=== PATIENT | female | born 1975 | race Caucasian/White ===

== ENCOUNTER 2024-02-05 12:53 | Emergency (ER) | payer MEDICAID, SELFPAY ==
--- NOTE | ~2024-02-05 | XR_ITS ---
EXAMINATION: XR CHEST CLINICAL INFORMATION: Cough, evaluate fluid overload. COMPARISON: None available. TECHNIQUE: 2 views of the chest were obtained. FINDINGS: Central vascular prominence and mild to moderate diffuse interstitial thickening. No consolidation. No pleural effusion or pneumothorax. Slightly prominent cardiac size. No acute osseous findings. Visualized upper abdomen is within normal limits. XR/XR chest 2V IMPRESSION: Findings are suggestive of interstitial pulmonary edema versus atypical/viral infectious process. No consolidation or pleural effusion. No pneumothorax.
--- NOTE | 2024-02-05 12:58 | ED_ITS ---
HPI - General Adult General Chief complaint: General Medical Stated complaint: BODY ACHES SWELLING OF LEGS Time Seen by Provider: 02/05/24 12:58 Source: patient and EMS Mode of arrival: EMS Limitations: no limitations History of Present Illness HPI narrative: Patient is a 48 year old, assigned female at , with a history of CHF, CKD, and DM II presents to the ED with a 1 week history of lower body aches and swelling. Patient endorses numbness and tingling in her lower extremities which have been consistent over the past week. Patient reports she has been without her home medications for about a week after running out. She was able to refill her meds today and brought them with her. Reports homelessness as a social determinant to getting the medications and treatments she needs. Denies headaches, dizziness, lightheadedness, nausea, vomiting, fatigue, fevers/chills, acute changes to vision, nasal congestion/discharge, cough, SOB, chest pain, abdominal pain, and urinary symptoms. Patient states that she was recently seen at [facility] for the same issues. MD complaint: Body aches and leg swelling Onset (ago): week(s) (1) Location: lower extremity (Bilaterally legs) Radiation: distal Severity: mild Severity scale (1-10): 3 Quality: constant and other (numbness and tingling) Pain Consistency: constant Relieving factors: none Exacerbating factors: none Associated symptoms: denies other symptoms Treatments prior to arrival: none Related Data Home Medications Medication Instructions Recorded Confirmed amlodipine 2.5 mg tablet 2.5 mg PO DAILY 02/05/24 02/05/24 citalopram 20 mg tablet 20 mg PO DAILY 02/05/24 02/05/24 empagliflozin 10 mg tablet 10 mg PO DAILY 02/05/24 02/05/24 (Jardiance) gabapentin 100 mg tablet 100 mg PO TID 02/05/24 02/05/24 insulin lispro 100 unit/mL 1 sliding scale dose subcut 02/05/24 02/05/24 subcutaneous solution USEASDIRECTD insulin lispro 100 unit/mL 5 unit subcut TID 02/05/24 02/05/24 subcutaneous solution sodium bicarbonate 650 mg tablet 1,300 mg PO TID 02/05/24 02/05/24 Allergies Allergy/AdvReac Type Severity Reaction Status Date / Time No Known Allergies Allergy Verified 02/05/24 13:08 Review of Systems 2 Constitutional: Constitutional: Reports body ache(s), Denies chills, Denies fatigue, Denies fever(s), Denies headache(s), Denies night sweats and Denies weakness Eyes: Eyes: Reports no additional eye complaints, Denies blurry vision, Denies change in vision, Denies diplopia, Denies eye discharge, Denies loss of vision and Denies eye pain ENT: Denies dizziness, Denies headache(s), Denies nasal congestion, Denies nasal discharge, Denies sinus pressure and Denies sore throat Cardiovascular: Cardiovascular: Denies chest pain, Reports pedal edema, Reports leg edema, Denies lightheadedness, Denies Loss of Consciousness, Denies dyspnea and Reports dyspnea on exertion Respiratory: Respiratory: Reports no additional respiratory complaints, Denies cough, Denies dyspnea and Reports dyspnea on exertion Gastrointestinal: Gastrointestinal: Denies abdominal pain, Denies melena, Denies hematochezia, Denies change in bowel habits, Denies change in stool character, Reports diarrhea and Reports loose stools Genitourinary: Genitourinary: Denies hematuria, Denies urinary frequency, Denies dysuria, Denies urinary incontinence, Denies urinary hesitancy and Denies urinary urgency Musculoskeletal: Musculoskeletal: Reports no additional musculoskeletal complaints, Denies numbness and Reports tingling Neurologic: Denies dizziness, Denies headache(s), Denies loss of vision, Denies numbness, Reports tingling, Reports paresthesias and Denies weakness Psychiatric: Psychiatric: Reports no additional psychiatric complaints Endocrine: Endocrine: Reports no additional endocrine complaints and Denies fatigue Hematologic/Lymphatic: Hematologic/Lymphatic: Reports no additional hematologic/lymphatic complaints Allergic/Immunologic: Allergic/Immunologic: Reports no additional allergic/immunologic complaints [facility] Past Medical History Attestation statement: The following information was validated with the patient. Source: old records reviewed and nursing notes reviewed Social History Social History (Updated 02/06/24 @ 13:20 by Violet Fuentes [facility]) Housing: Homeless Are you a primary critical care nurse specialist to a significant other at home: No Smoked in Last 30 Days: No Use of substances other than those prescribed or required for medical reasons: No Advance Directives: No Advance Directives Information Provided: No Healthcare Proxy: Yes If Yes to HCP, is it invoked: No Guardian: No Access to Firearms: No Physical Exam ED Vital Signs: Vital Signs - 24 hr 02/06/24 22:00 02/07/24 05:13 02/07/24 07:37 Temperature 98.9 F 97.4 F Pulse Rate 79 83 Respiratory Rate 18 14 18 Blood Pressure 135/63 150/67 H Pulse Oximetry 98 98 Oxygen Delivery Method Room Air Room Air 02/07/24 13:45 Temperature 97.5 F Pulse Rate 86 Respiratory Rate 20 Blood Pressure 134/61 Pulse Oximetry 98 Oxygen Delivery Method Room Air BMI result Body Mass Index 36.6 Const General: no acute distress, alert and awake Nutritional Appearance: obese Orientation/consciousness: patient oriented x3 Limitations: no limitations HENMT Head: Yes normal to inspection Ears: hearing grossly normal bilaterally General nose exam: Normal external nose present Face and sinus: Yes normal facial exam Mouth: Normal oral and palatal mucosa present, no drooling and no muffled voice Eyes General: appearance normal, both eyes and all related structures Periorbital: periorbital findings normal Eyelids: Yes eyelids normal Conjunctivae: conjunctivae normal Pupils: Equal, round and reactive pupils present EOM: EOMs intact bilaterally Neck Neck: Yes normal visual inspection, Yes full ROM and Yes no lymphadenopathy Chest Chest palpation & inspection: normal inspection of the chest Resp Effort & Inspection: normal respiratory effort and able to speak in complete sentences Auscultation: clear to auscultation bilaterally Cardio Jugular venous distension: no JVD Palpation: normal PMI Rate: regular rate Rhythm: regular rhythm GI Inspection: Yes normal to inspection Neuro General: patient oriented x3 Cranial nerves: Yes Equal, round and reactive pupils present Cognition (Neuro): normal cognition Motor exam (neuro): 5/5 motor strength present throughout Sensory Exam: Abnormal lower extremity sensory exam bilateral light-touch abnormal decreased (Decreased sensation in both lower extremities) Coordination: [id number] test normal Extrem General: Yes capillary refill normal, Yes edema (3+ pitting edema in bilaterally lower extremities from the knee down) and Yes pedal edema Right lower extremity: normal capillary refill, edema Details: pitting and 3+ and lower leg Details: pitting edema Details: 3+ Left lower extremity: normal capillary refill, edema Details: pitting and 3+, lower leg Details: pitting edema Details: 3+ and foot Details: other (Healed 3 cm diabetic foot pressure ulcer) Psych Appearance: grossly normal Mental Status: mental status grossly normal Affect: normal affect Attitude: cooperative Thought process: Normal thought process present Thought content: Normal thought content present Insight: Good insight present (Psych) Course Reevaluation(s) Reevaluation #1: Physician observation continued. Uneventful night. Vital signs stable. No complaints from nursing overnight. Med reconciliation reviewed and done. Pending disposition. Will continue to monitor. Time: 09:45 Reevaluation #2: Patient was cleared by the care team. Patient pending PT and case management. Time: 12:37 Reevaluation #3: Physician observation continued. Uneventful night. Vital signs stable. No complaints from nursing overnight. Med reconciliation reviewed and done. Pending disposition. Will continue to monitor. Additional Reevaluation(s): [address] [place] via BLS at 130pm today. Medications Administered Generic Name Dose Route Start Last Admin Trade Name Freq PRN Reason Stop Dose Admin Amlodipine Besylate 2.5 mg 02/06/24 09:00 02/07/24 09:25 Amlodipine Besylate 2.5 Mg Tablet PO 2.5 mg DAILY EDUARDO Administration Protocol Empagliflozin 10 mg 02/06/24 09:00 02/07/24 09:25 Empagliflozin 10 Mg Tablet PO 10 mg DAILY EDUARDO Administration Escitalopram Oxalate 10 mg 02/06/24 09:00 02/07/24 09:25 Escitalopram Oxalate 10 Mg Tablet PO 10 mg DAILY EDUARDO Administration Gabapentin 100 mg 02/05/24 21:45 02/07/24 09:25 Gabapentin 100 Mg Capsule PO 100 mg TID EDUARDO Administration Insulin Human Lispro 0 unit 02/05/24 21:30 02/07/24 11:47 Insulin Lispro 100 Unit/Ml 3 Ml Vial SUBCUT 4 unit QIDACHS EDUARDO Administration Protocol Insulin Human Lispro 5 unit 02/05/24 21:45 02/07/24 09:25 Insulin Lispro 100 Unit/Ml 3 Ml Vial SUBCUT 5 unit TID EDUARDO Administration Sodium Bicarbonate 1,300 mg 02/05/24 21:45 02/07/24 09:25 Sodium Bicarbonate 650 Mg Tablet PO 1,300 mg TID EDUARDO Administration Discontinued Medications Generic Name Dose Route Start Last Admin Trade Name Freq PRN Reason Stop Dose Admin Acetaminophen 650 mg 02/06/24 20:57 02/06/24 21:16 Acetaminophen 325 Mg Tablet PO 02/06/24 20:58 650 mg ONCE ONE Administration Furosemide 40 mg 02/05/24 15:58 02/05/24 16:10 Furosemide 40 Mg/4 Ml Vial IVPUSH 02/05/24 15:59 40 mg ONCE ONE Administration Protocol Labetalol HCl 10 mg 02/05/24 21:30 02/05/24 22:23 Labetalol Hcl 100 Mg/20 Ml Vial IVPUSH 02/05/24 21:31 10 mg ONCE ONE Administration Loperamide HCl 4 mg 02/06/24 22:07 02/06/24 22:20 Loperamide Hcl 2 Mg Capsule PO 02/06/24 22:08 4 mg ONCE ONE Administration Medical Decision Making Medical Decision Making MDM Narrative: Patient is a 48 year old assigned female at with a history of CHF, CKD, and DM II presenting to the emergency department today with bilateral leg swelling. Patient's physical exam was as noted in the physical exam portion of this note. Patient's blood work showed an elevated CR of 4.08, BUN of 103 and GFR of 17.9. I spoke with Dr. Dejesus from Nephrology who looked at the patient's records from [facility] and confirmed this is chronic levels for the patient and does not require dialysis. He also recommends giving 40mg of IV lasix for lower extremity edema relief. Patient use to require dialysis until December 2023 when she was told she no longer needed it. Patient's records from her recent [facility] visits state that her various work ups were normal, including bilateral lower extremity US, were negative. Patient's EKG was unremarkable. Patient's chest x-ray showed no acute process. I consulted with my attending physician, Dr. Lopez, who agrees this patient does not need to be admitted and would benefit from being evaluated by case management for help with housing. I explained my physical exam findings as well as all test results to the patient. I answered all questions asked by the patient. Patient verbalized agreement and understanding with this treatment plan and remaining in the department to be evaluated by the case management team. Differential Diagnosis Differential Diagnoses: The differential diagnosis associated with the presentation includes CKD Homelessness Dependent edema Homelessness Admission/Observation Consideration of admission/observation: Escalation of care including admission/observation considered Patient would have been admitted to the hospital had her work up had any findings where hospital admission was appropriate and her clinical presentation warranted hospital admission. Consult Healthcare Provider Management of the patient was discussed with: Communication Technician (spoke with the process cheese cooker as noted in the MDM Rationale portion of this note.) Lab Data [facility] Lab Attestation statement: I reviewed the patient's lab results. My interpretation of these results are in the MDM Rationale portion of this note. 02/05/24 14:23 02/05/24 14:23 Labs: Lab Results 02/05/24 02/05/24 02/05/24 Range/Units 14:23 17:48 19:59 WBC 5.9 (4.8-10.8) X10*3/uL RBC 2.69 L (4.20-5.50) X10*6/uL Hgb 8.4 L (12.0-16.0) g/dl Hct 25.4 L (37.0-47.0) % MCV 94.4 (80.0-98.0) fL MCH 31.2 (27.0-33.0) pg MCHC 33.1 (31.0-35.0) g/dl RDW 13.2 (11.0-16.0) % Plt Count 177 (160-400) X10*3/uL MPV 9.1 L (9.4-12.3) fL Immature Gran % (Auto) 0.3 (0.0-0.4) % Neut % (Auto) 73.1 H (45-73) % Lymph % (Auto) 16.7 L (20-40) % [place] % (Auto) 5.6 (2-11) % Eos % (Auto) 3.6 (0-4) % Baso % (Auto) 0.7 (0-2) % Lymph # (Auto) 1.0 L (1.2-4.9) X10*3/uL [place] # (Auto) 0.3 (0.1-1.2) X10*3/uL Eos # (Auto) 0.2 (0.0-0.4) X10*3/uL Baso # (Auto) 0.0 (0.0-0.2) X10*3/uL Abs Immat Gran (auto) 0.02 (0.00-0.03) X10*3/uL Absolute Neuts (auto) 4.3 (2.0-8.3) x10*3/uL Absolute Nucleated RBC 0.000 (0.0-0.012) X10*3/uL Nucleated RBC % (auto) 0.0 (0.0-0.2) /100WBC Sodium 135 (135-145) mmol/L Potassium 4.4 (3.3-5.1) mmol/L Chloride 103 (96-108) mmol/L Carbon Dioxide 22 (22-29) mmol/L Anion Gap 14 (12-20) BUN 103 H (9-16) mg/dL Creatinine 4.08 H* (0.5-1.4) mg/dL Estim Creat Clear Calc 17.9 Estimated GFR 12 POC Glucose 375 H* (60-115) mg/dL Random Glucose 385 H* (60-115) mg/dL Calcium 7.0 L (8.4-10.2) mg/dL Magnesium 2.1 (1.6-2.6) mg/dL Total Bilirubin 0.2 (0.0-1.0) mg/dL AST 14 (5-31) U/L ALT 23 (0-31) U/L Alkaline Phosphatase 308 H (39-117) U/L Troponin I High Sens 11.1 (<3.5-17.0) ng/L B-Natriuretic Peptide 345 H (<100) pg/mL Total Protein 6.6 (6.5-8.0) g/dL Albumin 3.1 L (3.5-5.0) g/dL Beta-Hydroxybutyrate 0.08 (0.02-0.27) mmol/L Urine Color Yellow Urine Appearance Clear Urine pH 7.5 (5.0-9.0) Ur Specific [place] 1.015 (1.005-1.025) Urine Protein 300 (3+) H (Neg-Trace) mg/dL Urine Glucose (UA) >=1000 H (Negative) mg/dL Urine Ketones Negative (Negative) mg/dL Urine Blood Small (1+) H (Negative) Urine Nitrite Negative (Negative) Ur Leukocyte Esterase Negative (Negative) Urine RBC 3-5 H (0-2) /HPF Urine WBC 0-5 (0-5) /HPF Ur Squamous Epith Cells 0-2 (0-2) /HPF Urine Bacteria Trace (None Seen) Hyaline Casts 0-2 (0-2) /LPF Urine Opiates Screen Not Detected (Not Detect) Urine Fentanyl Screen Not Detected (Not Detect) Ur Barbiturates Screen Not Detected (Not Detect) Ur Phencyclidine Scrn Not Detected (Not Detect) Ur Amphetamines Screen Not Detected (Not Detect) U Benzodiazepines Scrn Not Detected (Not Detect) Urine Cocaine Screen Not Detected (Not Detect) U Marijuana (THC) Screen Not Detected (Not Detect) Influenza Type A (PCR) NEGATIVE (Negative) Influenza Type B (PCR) NEGATIVE (Negative) RSV RNA Qual (PCR) NEGATIVE (Negative) SARS-CoV-2 RNA (RT-PCR) NEGATIVE (Negative) 02/06/24 02/06/24 02/06/24 Range/Units 07:18 11:04 16:10 WBC (4.8-10.8) X10*3/uL RBC (4.20-5.50) X10*6/uL Hgb (12.0-16.0) g/dl Hct (37.0-47.0) % MCV (80.0-98.0) fL MCH (27.0-33.0) pg MCHC (31.0-35.0) g/dl RDW (11.0-16.0) % Plt Count (160-400) X10*3/uL MPV (9.4-12.3) fL Immature Gran % (Auto) (0.0-0.4) % Neut % (Auto) (45-73) % Lymph % (Auto) (20-40) % [place] % (Auto) (2-11) % Eos % (Auto) (0-4) % Baso % (Auto) (0-2) % Lymph # (Auto) (1.2-4.9) X10*3/uL [place] # (Auto) (0.1-1.2) X10*3/uL Eos # (Auto) (0.0-0.4) X10*3/uL Baso # (Auto) (0.0-0.2) X10*3/uL Abs Immat Gran (auto) (0.00-0.03) X10*3/uL Absolute Neuts (auto) (2.0-8.3) x10*3/uL Absolute Nucleated RBC (0.0-0.012) X10*3/uL Nucleated RBC % (auto) (0.0-0.2) /100WBC Sodium (135-145) mmol/L Potassium (3.3-5.1) mmol/L Chloride (96-108) mmol/L Carbon Dioxide (22-29) mmol/L Anion Gap (12-20) BUN (9-16) mg/dL Creatinine (0.5-1.4) mg/dL Estim Creat Clear Calc Estimated GFR POC Glucose 229 H 210 H 146 H (60-115) mg/dL Random Glucose (60-115) mg/dL Calcium (8.4-10.2) mg/dL Magnesium (1.6-2.6) mg/dL Total Bilirubin (0.0-1.0) mg/dL AST (5-31) U/L ALT (0-31) U/L Alkaline Phosphatase (39-117) U/L Troponin I High Sens (<3.5-17.0) ng/L B-Natriuretic Peptide (<100) pg/mL Total Protein (6.5-8.0) g/dL Albumin (3.5-5.0) g/dL Beta-Hydroxybutyrate (0.02-0.27) mmol/L Urine Color Urine Appearance Urine pH (5.0-9.0) Ur Specific [place] (1.005-1.025) Urine Protein (Neg-Trace) mg/dL Urine Glucose (UA) (Negative) mg/dL Urine Ketones (Negative) mg/dL Urine Blood (Negative) Urine Nitrite (Negative) Ur Leukocyte Esterase (Negative) Urine RBC (0-2) /HPF Urine WBC (0-5) /HPF Ur Squamous Epith Cells (0-2) /HPF Urine Bacteria (None Seen) Hyaline Casts (0-2) /LPF Urine Opiates Screen (Not Detect) Urine Fentanyl Screen (Not Detect) Ur Barbiturates Screen (Not Detect) Ur Phencyclidine Scrn (Not Detect) Ur Amphetamines Screen (Not Detect) U Benzodiazepines Scrn (Not Detect) Urine Cocaine Screen (Not Detect) U Marijuana (THC) Screen (Not Detect) Influenza Type A (PCR) (Negative) Influenza Type B (PCR) (Negative) RSV RNA Qual (PCR) (Negative) SARS-CoV-2 RNA (RT-PCR) (Negative) 03/06/2402/07/24 02/07/24 Range/Units 19:02 06:58 10:57 WBC (4.8-10.8) X10*3/uL RBC (4.20-5.50) X10*6/uL Hgb (12.0-16.0) g/dl Hct (37.0-47.0) % MCV (80.0-98.0) fL MCH (27.0-33.0) pg MCHC (31.0-35.0) g/dl RDW (11.0-16.0) % Plt Count (160-400) X10*3/uL MPV (9.4-12.3) fL Immature Gran % (Auto) (0.0-0.4) % Neut % (Auto) (45-73) % Lymph % (Auto) (20-40) % [place] % (Auto) (2-11) % Eos % (Auto) (0-4) % Baso % (Auto) (0-2) % Lymph # (Auto) (1.2-4.9) X10*3/uL [place] # (Auto) (0.1-1.2) X10*3/uL Eos # (Auto) (0.0-0.4) X10*3/uL Baso # (Auto) (0.0-0.2) X10*3/uL Abs Immat Gran (auto) (0.00-0.03) X10*3/uL Absolute Neuts (auto) (2.0-8.3) x10*3/uL Absolute Nucleated RBC (0.0-0.012) X10*3/uL Nucleated RBC % (auto) (0.0-0.2) /100WBC Sodium (135-145) mmol/L Potassium (3.3-5.1) mmol/L Chloride (96-108) mmol/L Carbon Dioxide (22-29) mmol/L Anion Gap (12-20) BUN (9-16) mg/dL Creatinine (0.5-1.4) mg/dL Estim Creat Clear Calc Estimated GFR POC Glucose 192 H 121 H 243 H (60-115) mg/dL Random Glucose (60-115) mg/dL Calcium (8.4-10.2) mg/dL Magnesium (1.6-2.6) mg/dL Total Bilirubin (0.0-1.0) mg/dL AST (5-31) U/L ALT (0-31) U/L Alkaline Phosphatase (39-117) U/L Troponin I High Sens (<3.5-17.0) ng/L B-Natriuretic Peptide (<100) pg/mL Total Protein (6.5-8.0) g/dL Albumin (3.5-5.0) g/dL Beta-Hydroxybutyrate (0.02-0.27) mmol/L Urine Color Urine Appearance Urine pH (5.0-9.0) Ur Specific [place] (1.005-1.025) Urine Protein (Neg-Trace) mg/dL Urine Glucose (UA) (Negative) mg/dL Urine Ketones (Negative) mg/dL Urine Blood (Negative) Urine Nitrite (Negative) Ur Leukocyte Esterase (Negative) Urine RBC (0-2) /HPF Urine WBC (0-5) /HPF Ur Squamous Epith Cells (0-2) /HPF Urine Bacteria (None Seen) Hyaline Casts (0-2) /LPF Urine Opiates Screen (Not Detect) Urine Fentanyl Screen (Not Detect) Ur Barbiturates Screen (Not Detect) Ur Phencyclidine Scrn (Not Detect) Ur Amphetamines Screen (Not Detect) U Benzodiazepines Scrn (Not Detect) Urine Cocaine Screen (Not Detect) U Marijuana (THC) Screen (Not Detect) Influenza Type A (PCR) (Negative) Influenza Type B (PCR) (Negative) RSV RNA Qual (PCR) (Negative) SARS-CoV-2 RNA (RT-PCR) (Negative) Independent Interpretation I performed an independent interpretation of an: EKG Interpretation: Vent. Rate: 093 BPM Atrial Rate: 093 BPM P-R Int: 174 ms QRS Dur: 092 ms QT Int: 392 ms P-R-T Axes: 044 -13 051 degrees QTc Int: 487 ms Normal sinus rhythm Prolonged QT Abnormal ECG No previous ECGs available DD/ 1424 Independent Historian Clinical information obtained from an independent historian. History obtained from or confirmed by: EMS (EMS provided additional history and confirmed the history provided by the patient.) External Record Review External record reviewed: Outside ED record (reviewed [facility] records) Critical Care Time Critical Care Time Critical Care Time: Yes Total Critical Care Time: 45 Attestation: I spent 45 minutes of Critical Care Time with this patient. This does not include time spent on separately reported billable procedures. Discharge Plan Discharge Clinical Impression: CKD (chronic kidney disease) Edema Qualifiers: Edema type: localized Qualified Code(s): R60.0 - Localized edema Patient Disposition: [facility] Transfer Details: [facility] via BLS at 130pm today. Additional Instructions: Take your medications as prescribed. If you were prescribed antibiotics today, it is important that you take your medication to their entirety, do not skip any doses, do not finish them early. Follow-up with your primary care provider this week. Return to the emergency department with new or worsening symptoms. Such as fevers, chills, chest pain, shortness of breath, nausea, vomiting, dizziness, headache, vision changes, lethargy In case of emergency call 911 Prescriptions: No Action amlodipine 2.5 mg Tablet 2.5 mg PO DAILY citalopram 20 mg Tablet 20 mg PO DAILY sodium bicarbonate 650 mg Tablet 1,300 mg PO TID gabapentin 100 mg Tablet 100 mg PO TID Jardiance 10 mg Tablet 10 mg PO DAILY insulin lispro 100 unit/mL Solution 5 unit SUBCUT TID insulin lispro 100 unit/mL Solution 1 sliding scale dose SUBCUT USEASDIRECTD Protocol: Insulin Correction Scale Less than or equal to 110 ---- Give (units): 0 111 to 150 Give (units): 0 151 to 200 Give (units): 2 201 to 250 Give (units): 4 251 to 300 Give (units): 6 301 to 350 Give (units): 8 Greater than 350 Give (units): 10 Call MD if Blood Glucose > : 350 [facility]: [facility] [Outside] Interventions: ED Discharge Assessment Last Done: 02/07/24 13:40
[2024-02-05 13:00] VITALS: BP 136/82; PULSE 98
[2024-02-05 13:05] VITALS: BP 164/84; PULSE 95; RESP 18; TEMP 37.1; O2SAT 100; BMI 36.6
[2024-02-05 13:08] VITALS: PULSE 94; RESP 16; O2SAT 100
--- NOTE | 2024-02-05 13:08 | ECG_ITS ---
Test Reason : WEAKNESS Blood Pressure : / mmHG Vent. Rate : 093 BPM Atrial Rate : 093 BPM P-R Int : 174 ms QRS Dur : 092 ms QT Int : 392 ms P-R-T Axes : 044 -13 051 degrees QTc Int : 487 ms Normal sinus rhythm Prolonged QT Abnormal ECG No previous ECGs available Referred By: Coco Vásquez Electronically Signed By:Jeffrey Huang
--- NOTE | 2024-02-05 13:36 | PC.NURSE ---
Pt cleaned for large amt of stool, watery and formed. Seen by ED provider
--- NOTE | 2024-02-05 14:14 | PC.NURSE ---
Pt is alert and oriented. States homelessness and recent d/c from [facility] x1 week ago and just filled meds today, no meds since leave [facility]. Reports body swelling and body aches. Pitting edema noted up to B/L knees however skin taught up to thigh region. B/L pulses found via doppler and marked. LS clear, dim to bases. No SOB or resp distress. Pt reports old non functioning fistula to right forearm (h/o Dialysis) but states taken off x1 month ago as 24 urine was WNL. Skin is pale, warm and dry. Speaking full sentences.
[2024-02-05 14:28] LABS: MANUAL DIFF FLAG NO
[2024-02-05 14:31] LABS: Basophils Percent Auto 0.7 % (0-2); Eosinophils Absolute Auto 0.2 X10*3/uL (0.0-0.4); Eosinophils Percent Auto 3.6 % (0-4); Hematocrit 25.4 % (37.0-47.0); Hemoglobin 8.4 g/dl (12.0-16.0); Imm Gran Abs Auto 0.02 X10*3/uL (0.00-0.03); Imm Gran Pct Auto 0.3 % (0.0-0.4); Lymphocytes Percent Auto 16.7 % (20-40); Mean Corpuscular HGB Conc 33.1 g/dl (31.0-35.0); Mean Corpuscular Hemoglobin 31.2 pg (27.0-33.0); Mean Corpuscular Volume 94.4 fL (80.0-98.0); Mean Platelet Volume 9.1 fL (9.4-12.3); Monocytes Absolute Auto 0.3 X10*3/uL (0.1-1.2); Monocytes Percent Auto 5.6 % (2-11); Neutrophils Absolute Auto 4.3 x10*3/uL (2.0-8.3); Neutrophils Percent Auto 73.1 % (45-73); Platelet Count 177 X10*3/uL (160-400); Red Blood Count 2.69 X10*6/uL (4.20-5.50); Red Cell Distribution Width 13.2 % (11.0-16.0); White Blood Count 5.9 X10*3/uL (4.8-10.8)
[2024-02-05 14:48] LABS: Beta-Hydroxybutyrate 0.08 mmol/L (0.02-0.27)
[2024-02-05 14:51] LABS: B Type Natriuretic Peptide 345 pg/mL (<100)
[2024-02-05 14:53] LABS: Alanine Aminotransferase 23 U/L (0-31); Albumin Level 3.1 g/dL (3.5-5.0); Alkaline Phosphatase 308 U/L (39-117); Anion Gap 14 (12-20); Aspartate Amino Transferase 14 U/L (5-31); Bilirubin Total 0.2 mg/dL (0.0-1.0); Blood Urea Nitrogen 103 mg/dL (9-16); Carbon Dioxide 22 mmol/L (22-29); Chloride 103 mmol/L (96-108); Creatinine Clr Calc Pharmacy 17.9; Estimated Glomerular Filt Rate 12; Glucose Random 385 mg/dL (60-115); Magnesium 2.1 mg/dL (1.6-2.6); Potassium 4.4 mmol/L (3.3-5.1); Sodium 135 mmol/L (135-145); Total Protein 6.6 g/dL (6.5-8.0)
[2024-02-05 14:58] LABS: Troponin-I High Sensitivity 11.1 ng/L (<3.5-17.0)
[2024-02-05 15:16] LABS: Influenza A PCR NEGATIVE (Negative); Influenza B PCR NEGATIVE (Negative); Resp Syncy Virus RNA Qual PCR NEGATIVE (Negative); SARS COV2 PCR INHOUSE NEGATIVE (Negative)
[2024-02-05 15:48] VITALS: BP 174/99; PULSE 90; RESP 16; TEMP 36.7; O2SAT 99
[2024-02-05] MEDS: Furosemide 40 MG/4 ML VIAL IVPUSH (16:10)
--- NOTE | 2024-02-05 16:39 | PC.NURSE ---
Awaiting nephro consult, Chao castro
--- NOTE | 2024-02-05 17:10 | PC.NURSE ---
Nephro at bedside
--- NOTE | 2024-02-05 17:27 | PC.NURSE ---
Pharmacy will attempt med rec when able
--- NOTE | 2024-02-05 17:49 | MHC.EDTECH ---
Patient inc therefore patient changed and repositioned
[2024-02-05 18:01] LABS: Appearance Urine Clear; Color Urine Yellow; Glucose Urine UA >=1000 mg/dL (Negative); Leukocyte Esterase Urine Negative (Negative); Nitrite Urine Negative (Negative); PH 7.5 (5.0-9.0); Specific Gravity - Urine 1.015 (1.005-1.025); UMIC TRIGGER UACC YES; Urine Blood Small (1+) (Negative); Urine Ketones Negative (Negative); Urine Protein 300 (3+) mg/dL (Neg-Trace)
[2024-02-05 18:05] LABS: Amphetamine Screen Urine Not Detected (Not Detect); Barbiturates, Urine Not Detected (Not Detect); Benzodiazepines Screen Urine Not Detected (Not Detect); Cannabinoid Screen Urine Not Detected (Not Detect); Cocaine Screen Urine Not Detected (Not Detect); Fentanyl, urine Not Detected (Not Detect); Opiate Screen Urine Not Detected (Not Detect); Phencyclidine Screen Urine Not Detected (Not Detect)
--- NOTE | 2024-02-05 18:40 | MHC.EDTECH ---
Patient given dinner tray
[2024-02-05 18:54] LABS: Bacteria Urine Trace (None Seen); Hyaline Casts Urine 0-2 /LPF (0-2); Squamous Epithelial Cell Urine 0-2 /HPF (0-2); WBC Urine 0-5 /HPF (0-5)
--- NOTE | 2024-02-05 19:13 | PC.NURSE ---
this rn assumed care of pt. pt requesting ice at this time, pt set up with ice. no acute distress noted, no new orders at this time.
--- NOTE | 2024-02-05 19:33 | MHC.CM.ED ---
XM met with patient at the request of Coco MAYER. Pt is medically complex and is homeless. Pt has been living with friend, in shelters and most recently at the [facility] in [place]. She cannot afford to stay there. Her partner of 13 years December. She tells CM she has his ashes in her purse. Pt has 2 children who live in [place], [place]. Her daughter, who is 27, with her own children is raising her 15 year old brother for the past 2 years. Pt has no family help. Pt has a walker and a wheelchair. She has no services. She does not drive. She has her belongings with her. Pt tells CM she has her name on many lists for housing. States she has a Claims Consultant, Shey ([phone]) from [employer] who has been helping her with housing. Pt states she will visit her in the hospital tomorrow, 02/05 at noon time. CM requested that her telephonic case manager speak with case management if patient is agreeable . Pt is agreeable to CM speaking with Shey. No HCP on file. Pt is willing to complete a HCP, naming her daughter, Blue Villanueva in [facility], but does not have the telephone number and her phone is currently charging. Will complete when phone charged. PT is pending. CM will make local referrals for snf care. Pt is agreeable to referrals. CM following for safe discharge plan.
--- NOTE | 2024-02-05 20:00 | PC.NURSE ---
Assumed care of patient at this time. Patient transferred to a bed, changed secondary to urinary incontinence, and provided water to drink at this time.
[2024-02-05 20:01] VITALS: BP 193/107; PULSE 91; RESP 20; TEMP 36
[2024-02-05 20:03] LABS: Glucose, Whole Blood 375 mg/dL (60-115)
--- NOTE | 2024-02-05 21:00 | PM.CNNEP ---
History of Present Illness Reason for Consult Consult date: 02/05/24 Chief Complaint Chief complaint: BODY ACHES SWELLING OF LEGS History of Present Illness Narrative: Tia is a poor historian. She is a 48 year old, with a history of CHF, CKD, and DM II presents to [facility] with one week history of lower body aches and swelling. Patient endorses numbness and tingling in her lower extremities which have been consistent over the past week. Patient reports she has been without her home medications for about a week. Reports homelessness as a social determinant to getting the medications and treatments she needs. She had YASH on CKD and was on HD for sometime as per the patient. She does not know who her purchasing associate is/ her past . She denied any recent office follow up with renal MD. She denies headaches, dizziness, lightheadedness, nausea, vomiting, fatigue, fevers/chills, acute changes to vision, nasal congestion/discharge, cough, SOB, chest pain, abdominal pain, and urinary symptoms.Her BUN/Creatinine was 103/2.08. Nephrology has been consulted to assist in her clinical care during her current hospital stay Review of Systems Review of Systems Yes all other systems are reviewed and are negative [facility] Social History Social History Smoked in Last 30 Days: No Use of substances other than those prescribed or required for medical reasons: No Advance Directives: No Advance Directives Information Provided: No Meds Allergies Allergy/AdvReac Type Severity Reaction Status Date / Time No Known Allergies Allergy Verified 02/05/24 13:08 Home Medications Medication Instructions Recorded Confirmed Last Taken Type amlodipine 2.5 mg tablet 2.5 mg PO DAILY 02/05/24 02/05/24 1 Week Ago History ~01/29/24 citalopram 20 mg tablet 20 mg PO DAILY 02/05/24 02/05/24 1 Week Ago History ~01/29/24 empagliflozin 10 mg tablet 10 mg PO DAILY 02/05/24 02/05/24 1 Week Ago History (Jardiance) ~01/29/24 gabapentin 100 mg tablet 100 mg PO TID 02/05/24 02/05/24 1 Week Ago History ~01/29/24 insulin lispro 100 unit/mL 1 sliding scale dose subcut 02/05/24 02/05/24 01/29/24 21:00 History subcutaneous solution USEASDIRECTD insulin lispro 100 unit/mL 5 unit subcut TID 02/05/24 02/05/24 01/29/24 17:00 History subcutaneous solution sodium bicarbonate 650 mg tablet 1,300 mg PO TID 02/05/24 02/05/24 1 Week Ago History ~01/29/24 Physical Exam Vital Signs: Last Vital Signs Temp 96.8 F 02/05/24 20:01 Pulse 91 02/05/24 20:01 Resp 20 02/05/24 20:01 BP 193/107 H 02/05/24 20:01 Pulse Ox 99 02/05/24 15:48 O2 Del Method Room Air 02/05/24 20:01 BMI result Body Mass Index 36.6 Const General: comfortable and no acute distress Orientation/consciousness: patient oriented x3 HEENT Head: Yes normocephalic Mouth: Normal oral and palatal mucosa present Eyes EOM: EOMs intact bilaterally Neck Neck: Yes supple Resp Auscultation: diminished lung sounds Cardio Jugular venous distension: no JVD Rate: regular rate GI Palpation (GI): Soft to palpation Auscultation: normal bowel sounds General: Yes no CVA tenderness Back/Spine/Pelvis Back: no CVA tenderness Skin General skin exam: no rashes or lesions noted Neuro Other: No tremor/myoclonus General: patient oriented x3 and moves all extremities Extrem General: Yes edema Results Lab Results 02/05/24 14:23 02/05/24 14:23 Lab results: Chemistry 02/05/24 14:23 Sodium 135 Potassium 4.4 Carbon Dioxide 22 BUN 103 H Creatinine 4.08 H* Calcium 7.0 L Hematology 02/05/24 14:23 WBC 5.9 Hgb 8.4 L Plt Count 177 Urinalysis 02/05/24 17:48 Urine Color Yellow Urine Appearance Clear Urine pH 7.5 Ur Specific [place] 1.015 Urine Protein 300 (3+) H Urine Glucose (UA) >=1000 H Urine Ketones Negative Urine Blood Small (1+) H Urine Nitrite Negative Ur Leukocyte Esterase Negative Urine RBC 3-5 H Urine WBC 0-5 Ur Squamous Epith Cells 0-2 Hyaline Casts 0-2 Assessment and Plan (1) Edema: Qualifiers: Edema type: localized Qualified Code(s): R60.0 - Localized edema Status: Acute (2) Acute kidney injury superimposed on CKD: Status: Acute (3) Hypertension: Qualifiers: Hypertension type: primary hypertension Qualified Code(s): I10 - Essential (primary) hypertension Status: Acute (4) Anemia in chronic kidney disease (CKD): Qualifiers: Chronic kidney disease stage: stage 5, not on chronic dialysis Qualified Code(s): N18.5 - Chronic kidney disease, stage 5; D63.1 - Anemia in chronic kidney disease Status: Acute Plan Patient is a poor historian She likely has been having progressive decline in renal function needing HD when she acutely decompensated Has come off HD recently. ( Doesn't know renal MD's name/ practice name); Has no HD access Not uremic/hyperkalemic/metabolically acidotic; NO indication for re initiation of HD Shall start lasix 80 mg IV bid; May need lasix infusion; Low sodium diet; Daily weights; Urine Prot/cr ratio Likely will need ECHO; Has anemia of CKD; Iron studies; Shall do CKD W/U later Needs BP and BS to be kept at goal. Labs AM; Shall follow up closely Procedures Date of Service Date of Service: 02/05/24
[2024-02-05] MEDS: Insulin Lispro 100 UNIT/ML 3 ML VIAL SUBCUT ×2 (22:14)
[2024-02-05] MEDS: Gabapentin 100 MG CAPSULE PO (22:15)
[2024-02-05] MEDS: Labetalol HCL 100 MG/20 ML VIAL 10 MG IVPUSH (22:23)
[2024-02-05] MEDS: Sodium Bicarbonate 650 MG TABLET 1300 MG PO (22:24)
[2024-02-05 23:08] VITALS: BP 154/83; PULSE 85
[2024-02-06 05:56] VITALS: BP 130/69; PULSE 87; RESP 18; TEMP 36.9; O2SAT 93
[2024-02-06 07:21] LABS: Glucose, Whole Blood 229 mg/dL (60-115)
[2024-02-06] MEDS: Insulin Lispro 100 UNIT/ML 3 ML VIAL SUBCUT ×4 (07:50→20:07)
--- NOTE | 2024-02-06 08:08 | PC.NURSE ---
patient awake, eating breakfast. alert and oriented, respirations even and unlabored. physical therapy in room meeting with patient.
--- NOTE | 2024-02-06 09:03 | MHC.CM.ED ---
Addendum entered by Anna Bond 02/06/24 11:09: [facility] is able to offer a bed after speaking with patient's community case consultant. T/W will complete MDS and submit for [facility] PASRR Level 2. Care Team has been consulted due to SI in January. Original Note: Patient remains in ER overflow. Physical therapy eval completed. No skill indicated. Copy of HCP obtained from [facility]. Clinical updates sent to facilities still reviewing: [facility], [facility], [facility], [facility], [facility], [facility], [facility], [facility], [facility], [facility], [facility] and [facility] Continue to monitor for d/c needs.
[2024-02-06] MEDS: Empagliflozin 10 MG TABLET PO (09:18)
[2024-02-06] MEDS: Sodium Bicarbonate 650 MG TABLET 1300 MG PO ×3 (09:18→20:06)
[2024-02-06] MEDS: amLODIPine Besylate 2.5 MG TABLET PO (09:18)
[2024-02-06] MEDS: Escitalopram Oxalate 10 MG TABLET PO (09:18)
[2024-02-06] MEDS: Gabapentin 100 MG CAPSULE PO ×3 (09:18→20:06)
--- NOTE | 2024-02-06 09:23 | PC.NURSE ---
per PT, patient able to ambulate independently w/ walker to wheelchair in room w/out incident. states patient should be getting up to use commode, patient requesting purewick. encouraged to continue getting out of bed often by this RN. medicated per the JAN.
[2024-02-06 11:08] LABS: Glucose, Whole Blood 210 mg/dL (60-115)
--- NOTE | 2024-02-06 11:18 | PC.NURSE ---
care team meeting with patient at this time
--- NOTE | 2024-02-06 12:28 | MHC.CARE ---
Patient evaluated by the CARE Team, she does not require an inpatient psychiatric admission, written assessment to follow. ED provider, FRANCINE Braxton updated
--- NOTE | 2024-02-06 13:07 | MHC.CM.ED ---
Patient remains in ER overflow. Snf placement is needed because patient has an extensive medical history and is currently homeless. [facility] is willing to offer a senior care bed. Patient and showcase trimmer, Ngozi from [facility] both feel this placement is necessary for patient's safety. Continue to monitor for d/c needs.
--- NOTE | 2024-02-06 13:25 | PC.NURSE ---
incontinent of large bowel movement, linens changed and patient repositioned. encouraged to use the call oh next time to get up and utilize commode
[2024-02-06 13:58] VITALS: BP 108/59; PULSE 90; RESP 17; TEMP 36.6; O2SAT 98
[2024-02-06 16:14] LABS: Glucose, Whole Blood 146 mg/dL (60-115)
[2024-02-06 19:09] LABS: Glucose, Whole Blood 192 mg/dL (60-115)
--- NOTE | 2024-02-06 20:32 | PC.NURSE ---
I assumed care of the pt around 1999, pt resting comfortably in bed, reporting 9/10 pain generalized throughout. Pt was medicated with PM medications. A&Ox4, GCS 15. No other complaints at this time. Plan is for pt to go to [facility] tomorrow.
[2024-02-06] MEDS: Acetaminophen 325 MG TABLET 650 MG PO (21:16)
[2024-02-06 22:00] VITALS: RESP 18
[2024-02-06] MEDS: Loperamide HCl 2 MG CAPSULE 4 MG PO (22:20)
--- NOTE | 2024-02-06 22:39 | PC.NURSE ---
Pt had two episodes of incontinence of stool. Pt was cleaned and placed on a new clarissa, purewick replaced. Pt medicated with immodium
[2024-02-07 05:13] VITALS: BP 135/63; PULSE 79; RESP 14; TEMP 37.2; O2SAT 98
[2024-02-07 07:06] LABS: Glucose, Whole Blood 121 mg/dL (60-115)
[2024-02-07 07:37] VITALS: BP 150/67; PULSE 83; RESP 18; TEMP 36.3; O2SAT 98
[2024-02-07] MEDS: Escitalopram Oxalate 10 MG TABLET PO (09:25)
[2024-02-07] MEDS: amLODIPine Besylate 2.5 MG TABLET PO (09:25)
[2024-02-07] MEDS: Sodium Bicarbonate 650 MG TABLET 1300 MG PO (09:25)
[2024-02-07] MEDS: Insulin Lispro 100 UNIT/ML 3 ML VIAL SUBCUT ×2 (09:25→11:47)
[2024-02-07] MEDS: Gabapentin 100 MG CAPSULE PO (09:25)
[2024-02-07] MEDS: Empagliflozin 10 MG TABLET PO (09:25)
[2024-02-07 11:01] LABS: Glucose, Whole Blood 243 mg/dL (60-115)
--- NOTE | 2024-02-07 11:43 | MHC.CM.ED ---
Patient remains in ER overflow. Patient can leave for [facility] at 2pm. Nel CORDOVA booked. Med [facility] with chart. Patient, Aleyda ACOSTA and Julianna ESCAMILLA aware. Continue to monitor for d/c needs.
[2024-02-07 13:45] VITALS: BP 134/61; PULSE 86; RESP 20; TEMP 36.4; O2SAT 98
== END 2024-02-07 14:36 | disposition short-term general hospital (02) ==
PROVIDERS: Physician Assistant Medical; Emergency Provider Emergency Medicine; PCP Family Medicine
DX: R60.0 Localized edema (principal); N17.9 Acute kidney failure, unspecified; I13.2 Hypertensive heart and chronic kidney disease with heart failure and with stage 5 chronic kidney disease, or end stage renal disease; E11.22 Type 2 diabetes mellitus with diabetic chronic kidney disease; N18.5 Chronic kidney disease, stage 5; D63.1 Anemia in chronic kidney disease; I50.9 Heart failure, unspecified; Z11.52 Encounter for screening for COVID-19; Z20.828 Contact with and (suspected) exposure to other viral communicable diseases
CPT/HCPCS: 0241U; 71046; 80053; 80307; 81001; 82010; 82947; 83735; 83880; 84484; 85025; 93005; 96374; 96375; 97162; 99285; J1920; J1940; S9485

== ENCOUNTER → 2024-02-05 13:08 | Outpatient (BNV) | payer MEDICAID, SELFPAY | PROVIDERS: Emergency Provider Emergency Medicine; PCP Family Medicine; Visit Provider Internal Medicine Cardiovascular Disease | DX: I45.81 Long QT syndrome (principal) | CPT/HCPCS: 93010 ==

== ENCOUNTER → 2024-02-05 14:02 | Outpatient (BNV) | payer MEDICAID, SELFPAY | PROVIDERS: Emergency Provider Emergency Medicine; PCP Family Medicine; Visit Provider Internal Medicine Nephrology | DX: N17.9 Acute kidney failure, unspecified (principal); I12.0 Hypertensive chronic kidney disease with stage 5 chronic kidney disease or end stage renal disease; N18.5 Chronic kidney disease, stage 5; D63.1 Anemia in chronic kidney disease; R60.0 Localized edema | CPT/HCPCS: 99284 ==